=== PATIENT | male | born 1955 | race Caucasian/White ===

== ENCOUNTER 2021-03-03 19:08 | Inpatient (IN) ==
[2021-03-03] MEDS ORDERED: 0.9 % Sodium Chloride 1,000 ML IVC ONE (20:10)
[2021-03-03] MEDS ORDERED: methylPREDNISolone 125 MG/2 ML VIAL IVP ONE (20:10)
[2021-03-03] MEDS ORDERED: Ipratropium/Albuterol Neb 3 ML IH ONE (20:10)
[2021-03-03 20:37] LABS: Immature Granulocytes % 0.4 % (0-4); Mean Corpuscular HGB Conc 32.6 g/dL (31.6-35.5); Red Cell Distribution Width 14.2 % (11.5-14.5)
[2021-03-03 20:39] LABS: Basophils % 0.2 %; Hematocrit 42.3 % (37.5-50.1); Hemoglobin 13.8 g/dL (12.9-16.9); Immature Platelets 6.3 % (1.1-6.1); Lymphocytes # 0.9 K/mcL (0.6-4.6); Lymphocytes % 9.7 %; Mean Corpuscular Hemoglobin 28.3 pg (28.0-33.3); Mean Corpuscular Volume 86.7 fL (83.0-100.0); Mean Platelet Volume 11.6 fL (9.4-12.4); Monocytes # 0.6 K/mcL (0.0-1.3); Monocytes % 6.8 %; Neutrophils # 7.5 K/mcL (1.6-8.9); Platelet Count 136 K/mcL (140-400); Red Blood Count 4.88 M/mcL (4.19-5.50); Segmented Neutrophils % 82.9 %; White Blood Count 9.1 K/mcL (4.3-11.1)
[2021-03-03 20:59] LABS: Potassium 4.1 mEq/L (3.5-5.1)
[2021-03-03] MEDS ORDERED: Furosemide 20 MG/2 ML VIAL IVP ONE (21:11)
[2021-03-03 21:18] LABS: Troponin I 0.12 ng/mL (< 0.04)
[2021-03-03 22:00] LABS: Adenovirus Not Detected (Not Detect); Coronavirus 229E Not Detected (Not Detect); Coronavirus HKU1 Not Detected (Not Detect); Coronavirus NL63 Not Detected (Not Detect); Coronavirus OC43 Not Detected (Not Detect)
[2021-03-03 22:01] LABS: Bordetella Pertussis Not Detected (Not Detect); Chlamydophila pneumoniae Not Detected (Not Detect); Human Metapneumovirus Not Detected (Not Detect); Human Rhinovirus/Enterovirus Not Detected (Not Detect); Influenza A Subtype 2009 H1 Not Detected (Not Detect); Influenza B Not Detected (Not Detect); Mycoplasma pneumoniae Not Detected (Not Detect); Parainfluenza Virus 1 Not Detected (Not Detect); Parainfluenza Virus 2 Not Detected (Not Detect); Parainfluenza Virus 3 Not Detected (Not Detect); Parainfluenza Virus 4 Not Detected (Not Detect); Respiratory Syncytial Virus Not Detected (Not Detect)
[2021-03-03 22:03] LABS: SARS-CoV-2 DETECTED (Not Detect)
[2021-03-04] MEDS ORDERED: Acetaminophen 325 MG TABLET PO PRN (00:07)
[2021-03-04] MEDS ORDERED: Naloxone 0.4 MG/ML INJ IVP PRN (00:07)
[2021-03-04] MEDS ORDERED: Ondansetron 4 MG/2 ML VIAL IVP PRN (00:07)
[2021-03-04] MEDS ORDERED: Benzonatate 100 MG CAPSULE PO PRN (00:10)
[2021-03-04 01:36] LABS: Basophils % 0.2 %
[2021-03-04 01:37] LABS: Hemoglobin 14.6 g/dL (12.9-16.9); Immature Granulocytes % 0.8 % (0-4); Immature Platelets 6.4 % (1.1-6.1); Lymphocytes # 0.4 K/mcL (0.6-4.6); Mean Corpuscular HGB Conc 31.7 g/dL (31.6-35.5); Mean Corpuscular Volume 88.1 fL (83.0-100.0); Mean Platelet Volume 11.4 fL (9.4-12.4); Monocytes # 0.4 K/mcL (0.0-1.3); Monocytes % 3.9 %; Neutrophils # 9.8 K/mcL (1.6-8.9); Platelet Count 139 K/mcL (140-400); Red Blood Count 5.22 M/mcL (4.19-5.50); Red Cell Distribution Width 14.2 % (11.5-14.5); Segmented Neutrophils % 91.1 %; White Blood Count 10.8 K/mcL (4.3-11.1)
[2021-03-04 01:42] LABS: INR 1.2; Prothrombin Time 13.6 Seconds (9.4-12.1)
[2021-03-04 01:45] LABS: Activated Partial Thrombo Time 27.9 Seconds (26.0-36.0)
[2021-03-04 02:11] LABS: Albumin 3.6 g/dL (3.5-5.7); Albumin/Globulin Ratio 1.1 (1.1-2.2); Bilirubin,Total 0.6 mg/dL (0.3-1.0); Calcium 8.1 mg/dL (8.6-10.3); Globulin 3.3 g/dL (2.4-3.5); Magnesium 1.7 mg/dL (1.6-2.6); Phosphorous 2.9 mg/dL (2.7-4.5); Potassium 4.3 mEq/L (3.5-5.1); Total Protein 6.9 g/dL (6.4-8.9); Troponin I 0.09 ng/mL (< 0.04)
[2021-03-04] MEDS ORDERED: D5% in Water 1,000 ML IVC PRN (03:27)
[2021-03-04] MEDS ORDERED: Dextrose Gel 15 GM/37.5 ML TUBE PO PRN ×2 (03:27)
[2021-03-04] MEDS ORDERED: *HR* Dextrose 50 % in Water (Vial) 50 ML VIAL IVP PRN (03:27)
[2021-03-04] MEDS ORDERED: 0.9 % Sodium Chloride 1,000 ML IVC ONE (03:41)
[2021-03-04] MEDS: Ipratropium 1 PUFF INHALER IH SCH ×6 (05:09→23:38)
[2021-03-04] MEDS: *HR* Heparin 5,000 UNIT/ML VIAL SQ SCH ×2 (05:31→17:48)
[2021-03-04] MEDS: levoFLOXacin 750 MG/150 ML 750 MG/150 ML BAG IVPB SCH (08:24)
[2021-03-04] MEDS: Insulin LISPRO 300 UNITS/3 ML VIAL SUBQ SCH ×6 (08:26→20:29)
[2021-03-04] MEDS ORDERED: Insulin DETEMIR 100 UNIT/ML X5UNITS SUBQ ONE (08:30)
[2021-03-04] MEDS: Gabapentin 300 MG CAPSULE PO SCH ×3 (10:47→20:29)
[2021-03-04] MEDS: 0.9 % Sodium Chloride 1,000 ML IVC SCH ×2 (10:48→20:28)
[2021-03-04] MEDS: Aspirin Enteric Coated 325 MG Tablet PO SCH (10:50)
[2021-03-04] MEDS: Insulin DETEMIR 100 UNIT/ML X5UNITS SUBQ SCH (20:29)
[2021-03-05] MEDS: Melatonin 3 MG TABLET PO PRN (02:55)
[2021-03-05] MEDS: Ipratropium 1 PUFF INHALER IH SCH ×5 (04:15→20:31)
[2021-03-05 05:02] LABS: Alanine Aminotransferase 26 Units/L (7-52); Albumin 3.4 g/dL (3.5-5.7); Albumin/Globulin Ratio 1.1 (1.1-2.2); Alkaline Phosphatase 100 Units/L (34-104); Aspartate Amino Transferase 40 Units/L (13-39); BUN/Creatinine Ratio 32 (6-26); Bilirubin,Total 0.5 mg/dL (0.3-1.0); Blood Urea Nitrogen 34 mg/dL (8-23); Calcium 8.5 mg/dL (8.6-10.3); Carbon Dioxide 24 mEq/L (23-29); Chloride 105 mEq/L (98-107); Globulin 3.1 g/dL (2.4-3.5); Glucose 101 mg/dL (70-105); Osmolality,Calculated 294 (280-300); Potassium 4.4 mEq/L (3.5-5.1); Sodium 138 mEq/L (136-145); Total Protein 6.5 g/dL (6.4-8.9); eGFR For African Americans > 60 (> 60); eGFR For Non-African Americans > 60 (> 60)
[2021-03-05] MEDS: *HR* Heparin 5,000 UNIT/ML VIAL SQ SCH ×2 (05:17→17:56)
[2021-03-05 06:02] LABS: Basophils % 0.1 %; Hematocrit 46.6 % (37.5-50.1); Hemoglobin 15.3 g/dL (12.9-16.9); Immature Granulocytes % 0.7 % (0-4); Lymphocytes % 4.5 %; Mean Corpuscular HGB Conc 32.8 g/dL (31.6-35.5); Mean Corpuscular Hemoglobin 28.6 pg (28.0-33.3); Mean Corpuscular Volume 87.1 fL (83.0-100.0); Mean Platelet Volume 11.1 fL (9.4-12.4); Monocytes # 0.7 K/mcL (0.0-1.3); Monocytes % 3.1 %; Neutrophils # 20.4 K/mcL (1.6-8.9); Platelet Count 241 K/mcL (140-400); Red Blood Count 5.35 M/mcL (4.19-5.50); Red Cell Distribution Width 14.1 % (11.5-14.5); Segmented Neutrophils % 91.6 %; White Blood Count 22.3 K/mcL (4.3-11.1)
[2021-03-05] MEDS ORDERED: Furosemide 40 MG/4 ML VIAL IVP SCH ×2 (09:00→21:00)
[2021-03-05] MEDS: Aspirin Enteric Coated 325 MG Tablet PO SCH (09:03)
[2021-03-05] MEDS: Gabapentin 300 MG CAPSULE PO SCH ×3 (09:03→21:00)
[2021-03-05] MEDS: Insulin LISPRO 300 UNITS/3 ML VIAL SUBQ SCH ×7 (09:03→21:02)
[2021-03-05] MEDS: levoFLOXacin 750 MG/150 ML 750 MG/150 ML BAG IVPB SCH (09:03)
[2021-03-05] MEDS: Insulin DETEMIR 100 UNIT/ML X5UNITS SUBQ SCH (21:01)
[2021-03-06] MEDS: Ipratropium 1 PUFF INHALER IH SCH ×7 (00:49→23:34)
[2021-03-06 03:50] LABS: Basophils % 0.1 %; Hematocrit 46.2 % (37.5-50.1); Hemoglobin 14.8 g/dL (12.9-16.9); Immature Granulocytes % 0.5 % (0-4); Lymphocytes # 1.1 K/mcL (0.6-4.6); Lymphocytes % 5.8 %; Mean Corpuscular Hemoglobin 28.2 pg (28.0-33.3); Mean Corpuscular Volume 88.2 fL (83.0-100.0); Mean Platelet Volume 10.8 fL (9.4-12.4); Monocytes # 0.8 K/mcL (0.0-1.3); Monocytes % 4.1 %; Neutrophils # 16.7 K/mcL (1.6-8.9); Platelet Count 244 K/mcL (140-400); Red Blood Count 5.24 M/mcL (4.19-5.50); Red Cell Distribution Width 14.5 % (11.5-14.5); Segmented Neutrophils % 89.5 %; White Blood Count 18.7 K/mcL (4.3-11.1)
[2021-03-06 04:26] LABS: Calcium 8.7 mg/dL (8.6-10.3); Magnesium 1.8 mg/dL (1.6-2.6); Potassium 4.3 mEq/L (3.5-5.1)
[2021-03-06] MEDS: *HR* Heparin 5,000 UNIT/ML VIAL SQ SCH ×2 (04:36→16:57)
[2021-03-06] MEDS: Aspirin Enteric Coated 325 MG Tablet PO SCH (08:01)
[2021-03-06] MEDS: Dexamethasone Sodium Phos/PF 10 MG/ML VIAL IVP SCH (08:01)
[2021-03-06] MEDS: Gabapentin 300 MG CAPSULE PO SCH ×3 (08:01→21:04)
[2021-03-06] MEDS: levoFLOXacin 750 MG/150 ML 750 MG/150 ML BAG IVPB SCH (08:01)
[2021-03-06] MEDS: Insulin LISPRO 300 UNITS/3 ML VIAL SUBQ SCH ×7 (08:22→21:08)
[2021-03-06] MEDS: Insulin DETEMIR 100 UNIT/ML X5UNITS SUBQ SCH (21:11)
[2021-03-07] MEDS: Ipratropium 1 PUFF INHALER IH SCH ×6 (04:12→23:08)
[2021-03-07] MEDS: *HR* Enoxaparin 40 MG/0.4 ML SYRINGE SQ SCH (05:16)
[2021-03-07 06:03] LABS: Hematocrit 46.2 % (37.5-50.1); Hemoglobin 14.5 g/dL (12.9-16.9); Mean Corpuscular HGB Conc 31.4 g/dL (31.6-35.5); Mean Corpuscular Hemoglobin 28.1 pg (28.0-33.3); Mean Corpuscular Volume 89.5 fL (83.0-100.0); Mean Platelet Volume 10.8 fL (9.4-12.4); Platelet Count 171 K/mcL (140-400); Red Blood Count 5.16 M/mcL (4.19-5.50); Red Cell Distribution Width 14.2 % (11.5-14.5); White Blood Count 11.2 K/mcL (4.3-11.1)
[2021-03-07] MEDS: Furosemide 40 MG/4 ML VIAL IVP SCH (08:59)
[2021-03-07] MEDS: levoFLOXacin 750 MG/150 ML 750 MG/150 ML BAG IVPB SCH (09:00)
[2021-03-07] MEDS: Aspirin Enteric Coated 325 MG Tablet PO SCH (09:01)
[2021-03-07] MEDS: Dexamethasone Sodium Phos/PF 10 MG/ML VIAL IVP SCH (09:01)
[2021-03-07] MEDS: Gabapentin 300 MG CAPSULE PO SCH ×3 (09:01→20:08)
[2021-03-07] MEDS: Insulin LISPRO 300 UNITS/3 ML VIAL SUBQ SCH ×7 (09:02→20:20)
[2021-03-07] MEDS ORDERED: Insulin LISPRO 300 UNITS/3 ML VIAL SUBQ SCH (11:30)
[2021-03-07 12:50] LABS: BUN/Creatinine Ratio 32 (6-26); Blood Urea Nitrogen 46 mg/dL (8-23); Calcium 8.2 mg/dL (8.6-10.3); Carbon Dioxide 22 mEq/L (23-29); Chloride 98 mEq/L (98-107); Glucose 445 mg/dL (70-105); Osmolality,Calculated 307 (280-300); Potassium 4.5 mEq/L (3.5-5.1); Sodium 133 mEq/L (136-145); eGFR For African Americans > 60 (> 60); eGFR For Non-African Americans 50 (> 60)
[2021-03-07] MEDS: Melatonin 3 MG TABLET PO PRN (20:08)
[2021-03-07] MEDS: Insulin DETEMIR 100 UNIT/ML X5UNITS SUBQ SCH (20:19)
[2021-03-08] MEDS: Ipratropium 1 PUFF INHALER IH SCH ×5 (04:32→20:11)
[2021-03-08] MEDS: *HR* Enoxaparin 40 MG/0.4 ML SYRINGE SQ SCH (05:19)
[2021-03-08 06:41] LABS: Hematocrit 40.6 % (37.5-50.1); Hemoglobin 13.3 g/dL (12.9-16.9); Mean Corpuscular HGB Conc 32.8 g/dL (31.6-35.5); Mean Corpuscular Hemoglobin 28.2 pg (28.0-33.3); Mean Platelet Volume 10.7 fL (9.4-12.4); Platelet Count 235 K/mcL (140-400); Red Blood Count 4.72 M/mcL (4.19-5.50); Red Cell Distribution Width 13.6 % (11.5-14.5); White Blood Count 9.7 K/mcL (4.3-11.1)
[2021-03-08 07:01] LABS: BUN/Creatinine Ratio 36 (6-26); Blood Urea Nitrogen 50 mg/dL (8-23); Calcium 8.5 mg/dL (8.6-10.3); Carbon Dioxide 26 mEq/L (23-29); Chloride 101 mEq/L (98-107); Glucose 330 mg/dL (70-105); Osmolality,Calculated 306 (280-300); Potassium 4.5 mEq/L (3.5-5.1); Sodium 135 mEq/L (136-145); eGFR For African Americans > 60 (> 60); eGFR For Non-African Americans 51 (> 60)
[2021-03-08] MEDS: Aspirin Enteric Coated 325 MG Tablet PO SCH (08:34)
[2021-03-08] MEDS: levoFLOXacin 750 MG TABLET PO SCH (08:34)
[2021-03-08] MEDS: Furosemide 40 MG/4 ML VIAL IVP SCH (08:35)
[2021-03-08] MEDS: Dexamethasone Sodium Phos/PF 10 MG/ML VIAL IVP SCH (08:35)
[2021-03-08] MEDS: Insulin LISPRO 300 UNITS/3 ML VIAL SUBQ SCH ×8 (08:35→21:15)
[2021-03-08] MEDS: Gabapentin 300 MG CAPSULE PO SCH ×3 (08:36→20:16)
[2021-03-08] MEDS: polyethylene glycoL 3350 17 GM POWD.PACK PO SCH (16:48)
[2021-03-08] MEDS: Insulin DETEMIR 100 UNIT/ML X5UNITS SUBQ SCH (20:16)
[2021-03-08] MEDS: Melatonin 3 MG TABLET PO PRN (20:16)
[2021-03-09] MEDS: Ipratropium 1 PUFF INHALER IH SCH ×7 (00:22→23:51)
[2021-03-09] MEDS: *HR* Enoxaparin 40 MG/0.4 ML SYRINGE SQ SCH (05:09)
[2021-03-09 07:28] LABS: Basophils % 0.3 %
[2021-03-09 07:35] LABS: Hemoglobin 13.3 g/dL (12.9-16.9); Mean Platelet Volume 10.7 fL (9.4-12.4)
[2021-03-09 07:37] LABS: Hematocrit 39.9 % (37.5-50.1); Immature Granulocytes % 1.5 % (0-4); Immature Platelets 5.3 % (1.1-6.1); Lymphocytes # 0.5 K/mcL (0.6-4.6); Lymphocytes % 5.9 %; Mean Corpuscular HGB Conc 33.3 g/dL (31.6-35.5); Mean Corpuscular Hemoglobin 28.1 pg (28.0-33.3); Mean Corpuscular Volume 84.4 fL (83.0-100.0); Monocytes # 0.5 K/mcL (0.0-1.3); Platelet Count 207 K/mcL (140-400); Red Blood Count 4.73 M/mcL (4.19-5.50); Red Cell Distribution Width 13.5 % (11.5-14.5); Segmented Neutrophils % 87.3 %; White Blood Count 9.2 K/mcL (4.3-11.1)
[2021-03-09 08:30] LABS: BUN/Creatinine Ratio 35 (6-26); Blood Urea Nitrogen 50 mg/dL (8-23); Calcium 8.4 mg/dL (8.6-10.3); Carbon Dioxide 24 mEq/L (23-29); Chloride 103 mEq/L (98-107); Glucose 190 mg/dL (70-105); Osmolality,Calculated 302 (280-300); Potassium 4.7 mEq/L (3.5-5.1); Sodium 137 mEq/L (136-145); eGFR For African Americans > 60 (> 60); eGFR For Non-African Americans 50 (> 60)
[2021-03-09 09:09] LABS: Large Platelets Present (Not Present); Platelet Estimate Normal (Normal)
[2021-03-09] MEDS: levoFLOXacin 750 MG TABLET PO SCH (10:51)
[2021-03-09] MEDS: Aspirin Enteric Coated 325 MG Tablet PO SCH (10:52)
[2021-03-09] MEDS: Furosemide 40 MG TABLET PO SCH (10:52)
[2021-03-09] MEDS: Dexamethasone Sodium Phos/PF 10 MG/ML VIAL IVP SCH (10:52)
[2021-03-09] MEDS: Gabapentin 300 MG CAPSULE PO SCH ×3 (10:52→20:28)
[2021-03-09] MEDS: polyethylene glycoL 3350 17 GM POWD.PACK PO SCH (10:53)
[2021-03-09] MEDS: Insulin LISPRO 300 UNITS/3 ML VIAL SUBQ SCH ×7 (12:04→20:28)
[2021-03-09] MEDS: Insulin DETEMIR 100 UNIT/ML X5UNITS SUBQ SCH (20:28)
[2021-03-10] MEDS: Ipratropium 1 PUFF INHALER IH SCH ×4 (04:21→16:03)
[2021-03-10] MEDS: *HR* Enoxaparin 40 MG/0.4 ML SYRINGE SQ SCH (05:52)
[2021-03-10 09:53] LABS: BUN/Creatinine Ratio 35 (6-26); Blood Urea Nitrogen 43 mg/dL (8-23); Carbon Dioxide 25 mEq/L (23-29); Chloride 101 mEq/L (98-107); Glucose 252 mg/dL (70-105); Osmolality,Calculated 299 (280-300); Potassium 4.7 mEq/L (3.5-5.1); Sodium 135 mEq/L (136-145); eGFR For African Americans > 60 (> 60); eGFR For Non-African Americans 58 (> 60)
[2021-03-10] MEDS: Aspirin Enteric Coated 325 MG Tablet PO SCH (10:32)
[2021-03-10] MEDS: polyethylene glycoL 3350 17 GM POWD.PACK PO SCH (10:32)
[2021-03-10] MEDS: Furosemide 40 MG TABLET PO SCH (10:32)
[2021-03-10] MEDS: Gabapentin 300 MG CAPSULE PO SCH ×2 (10:32→16:49)
[2021-03-10] MEDS: levoFLOXacin 750 MG TABLET PO SCH (10:33)
[2021-03-10] MEDS: Dexamethasone Sodium Phos/PF 10 MG/ML VIAL IVP SCH (10:36)
[2021-03-10] MEDS: Insulin LISPRO 300 UNITS/3 ML VIAL SUBQ SCH ×6 (10:40→16:57)
[2021-03-10 11:21] LABS: Calcium 8.6 mg/dL (8.6-10.3)
[2021-03-10 11:50] VITALS: BP 170/82; PULSE 80; TEMP 97.5
[2021-03-10 16:52] VITALS: O2SAT 91
== END 2021-03-10 18:22 | disposition home or self-care (01) | DRG 871 ==
LOC: 3BNU 19:08 → EMEROOARM 19:08 → SUATTDRO 22:10 → 3BNU 03-04 00:54 → SUATTDRO 03-04 17:38 → 2NENU 03-05 22:37
PROVIDERS: ADMIT Internal Medicine; ATTEND Internal Medicine

== ENCOUNTER 2021-10-04 17:36 | Inpatient (IN) ==
[2021-10-04] MEDS ORDERED: Isovue-370 500 ML BOTTLE IVP ONE (18:04)
[2021-10-04 18:16] LABS: Hemoglobin 15.6 g/dL (12.9-16.9); Mean Corpuscular HGB Conc 33.2 g/dL (31.6-35.5); Mean Corpuscular Hemoglobin 28.3 pg (28.0-33.3); Mean Corpuscular Volume 85.1 fL (83.0-100.0); Mean Platelet Volume 11.9 fL (9.4-12.4); Platelet Count 174 K/mcL (140-400); Red Blood Count 5.52 M/mcL (4.19-5.50); Red Cell Distribution Width 13.9 % (11.5-14.5); White Blood Count 11.4 K/mcL (4.3-11.1)
[2021-10-04 18:39] LABS: Calcium 9.3 mg/dL (8.6-10.3); Troponin I 0.05 ng/mL (< 0.04)
[2021-10-04] MEDS ORDERED: Aspirin 325 MG TABLET PO ONE (19:00)
[2021-10-04] MEDS ORDERED: Perflutren Lipid Microsphere 1.3 ML in 0.9 % Sodium Chloride 8.7 ML IVP PRN (20:10)
[2021-10-04] MEDS ORDERED: 0.9 % Sodium Chloride 1,000 ML IVC SCH (20:15)
[2021-10-04] MEDS ORDERED: *HR* Dextrose 50 % in Water (Syg) 50 ML SYRINGE IVP PRN (21:48)
[2021-10-04] MEDS ORDERED: D5% in Water 1,000 ML IVC PRN (21:48)
[2021-10-04] MEDS ORDERED: Dextrose 4 GM Chewable Tablets PO PRN ×2 (21:48)
[2021-10-04] MEDS ORDERED: Aspirin 81 MG TAB.CHEW PO ONE (21:50)
[2021-10-04] MEDS: Insulin DETEMIR 100 UNIT/ML X5UNITS SUBQ SCH (22:41)
[2021-10-04] MEDS: Gabapentin 300 MG CAPSULE PO SCH (22:41)
[2021-10-05 02:28] LABS: Hematocrit 40.8 % (37.5-50.1); Mean Corpuscular HGB Conc 32.8 g/dL (31.6-35.5); Mean Corpuscular Volume 85.4 fL (83.0-100.0); Mean Platelet Volume 12.1 fL (9.4-12.4); Platelet Count 137 K/mcL (140-400); Red Blood Count 4.78 M/mcL (4.19-5.50); Red Cell Distribution Width 13.8 % (11.5-14.5); White Blood Count 9.2 K/mcL (4.3-11.1)
[2021-10-05 02:32] LABS: Estimated Average Glucose 246 mg/dl; Hemoglobin A1C 10.2 %
[2021-10-05 02:36] LABS: Hemoglobin 13.4 g/dL (12.9-16.9)
[2021-10-05 02:39] LABS: Calcium 8.5 mg/dL (8.6-10.3); Chol/HDL Ratio 6.2 (0-4.9)
[2021-10-05] MEDS: Aspirin 81 MG TAB.CHEW PO SCH (09:39)
[2021-10-05] MEDS: Furosemide 40 MG TABLET PO SCH (09:39)
[2021-10-05] MEDS: Gabapentin 300 MG CAPSULE PO SCH ×3 (09:39→20:35)
[2021-10-05] MEDS ORDERED: Insulin LISPRO 300 UNITS/3 ML VIAL SUBQ SCH ×2 (09:49→22:00)
[2021-10-05] MEDS: Insulin LISPRO 300 UNITS/3 ML VIAL SUBQ SCH ×2 (12:15→16:47)
[2021-10-05 14:01] LABS: Amphetamine Screen,Urine Negative ng/mL (Cutoff=1000); Barbiturate Screen,Urine Negative ng/mL (Cutoff=200); Benzodiazepines Screen,Urine Negative ng/mL (Cutoff=200); Cannabinoid Screen,Urine Negative ng/mL (Cutoff = 50); Cocaine Screen,Urine Negative ng/mL (Cutoff= 300); Opiate Screen,Urine Negative ng/mL (Cutoff=300); Phencyclidine Screen,Urine Negative ng/mL (Cutoff=25)
[2021-10-05] MEDS: Insulin DETEMIR 100 UNIT/ML X5UNITS SUBQ SCH (20:36)
[2021-10-06 06:44] VITALS: BP 184/91; PULSE 63; TEMP 98.1; O2SAT 93
[2021-10-06] MEDS: Insulin LISPRO 300 UNITS/3 ML VIAL SUBQ SCH (08:49)
[2021-10-06] MEDS: Gabapentin 300 MG CAPSULE PO SCH (08:49)
[2021-10-06] MEDS: Aspirin 81 MG TAB.CHEW PO SCH (08:49)
[2021-10-06] MEDS: Furosemide 40 MG TABLET PO SCH (08:49)
== END 2021-10-06 13:57 | disposition home health service (06) | DRG 45 ==
LOC: EMEROOARM 17:36 → 3BNU 17:36 → SUATTDRO 10-05 13:14
PROVIDERS: ADMIT Nurse Practitioner; ATTEND Nurse Practitioner

== ENCOUNTER 2021-11-22 16:20 | Inpatient (IN) ==
[2021-11-22] MEDS ORDERED: Isovue-370 500 ML BOTTLE IVP ONE (16:31)
[2021-11-22 16:54] LABS: Hematocrit 34.6 % (37.5-50.1); Hemoglobin 11.3 g/dL (12.9-16.9); Mean Corpuscular HGB Conc 32.7 g/dL (31.6-35.5); Mean Corpuscular Hemoglobin 28.3 pg (28.0-33.3); Mean Corpuscular Volume 86.5 fL (83.0-100.0); Mean Platelet Volume 11.2 fL (9.4-12.4); Platelet Count 145 K/mcL (140-400); Red Cell Distribution Width 14.7 % (11.5-14.5); White Blood Count 13.9 K/mcL (4.3-11.1)
[2021-11-22 17:04] LABS: INR 1.2; Prothrombin Time 13.8 Seconds (9.4-12.1)
[2021-11-22 17:07] LABS: Activated Partial Thrombo Time 29.1 Seconds (26.0-36.0)
[2021-11-22 17:41] LABS: BUN/Creatinine Ratio 21 (6-26); Blood Urea Nitrogen 34 mg/dL (8-23); Carbon Dioxide 26 mEq/L (23-29); Chloride 98 mEq/L (98-107); Creatine Kinase 85 Units/L (30-223); Ethanol < 10 mg/dL (Less than 10); Glucose 172 mg/dL (70-105); Osmolality,Calculated 284 (280-300); Potassium 3.8 mEq/L (3.5-5.1); Sodium 131 mEq/L (136-145); Troponin I 0.11 ng/mL (< 0.04); eGFR For African Americans 53 (> 60); eGFR For Non-African Americans 43 (> 60)
[2021-11-22 18:19] LABS: Bilirubin,Urine Negative (Negative); Blood,Urine Negative (Negative); Clarity,Urine Clear (Clear); Color,Urine Yellow (Yellow); Glucose,Urine (UA) Normal (Normal); Ketones,Urine Negative (Negative); Leukocyte Esterase,Urine Negative (Negative); Nitrite,Urine Negative (Negative); Protein,Urine Trace mg/dL (Neg-Trace); Specific Gravity,Urine > 1.030 (1.010-1.025); Urobilinogen,Urine Normal (Normal)
[2021-11-22] MEDS ORDERED: Aspirin Enteric Coated 325 MG Tablet PO SCH (20:00)
[2021-11-22] MEDS ORDERED: 0.9 % Sodium Chloride 1,000 ML IVC SCH (20:15)
[2021-11-23 01:29] LABS: Hematocrit 35.8 % (37.5-50.1); Hemoglobin 11.5 g/dL (12.9-16.9); Mean Corpuscular HGB Conc 32.1 g/dL (31.6-35.5); Mean Corpuscular Hemoglobin 28.1 pg (28.0-33.3); Mean Corpuscular Volume 87.5 fL (83.0-100.0); Mean Platelet Volume 11.6 fL (9.4-12.4); Platelet Count 148 K/mcL (140-400); Red Blood Count 4.09 M/mcL (4.19-5.50); Red Cell Distribution Width 14.7 % (11.5-14.5); White Blood Count 12.5 K/mcL (4.3-11.1)
[2021-11-23 01:46] LABS: INR 1.2; Prothrombin Time 13.1 Seconds (9.4-12.1)
[2021-11-23 01:47] LABS: Albumin 3.3 g/dL (3.5-5.7); Albumin/Globulin Ratio 1.2 (1.1-2.2); Bilirubin,Total 0.6 mg/dL (0.3-1.0); Calcium 8.4 mg/dL (8.6-10.3); Chol/HDL Ratio 2.6 (0-4.9); Globulin 2.7 g/dL (2.4-3.5); Potassium 3.5 mEq/L (3.5-5.1)
[2021-11-23 02:00] LABS: Adenovirus Not Detected (Not Detect); Bordetella Pertussis Not Detected (Not Detect); Chlamydophila pneumoniae Not Detected (Not Detect); Coronavirus 229E Not Detected (Not Detect); Coronavirus HKU1 Not Detected (Not Detect); Coronavirus NL63 Not Detected (Not Detect); Coronavirus OC43 Not Detected (Not Detect); Human Metapneumovirus Not Detected (Not Detect); Human Rhinovirus/Enterovirus DETECTED (Not Detect); Influenza A Subtype 2009 H1 Not Detected (Not Detect); Influenza B Not Detected (Not Detect); Mycoplasma pneumoniae Not Detected (Not Detect); Parainfluenza Virus 1 Not Detected (Not Detect); Parainfluenza Virus 2 Not Detected (Not Detect); Parainfluenza Virus 3 Not Detected (Not Detect); Parainfluenza Virus 4 Not Detected (Not Detect); Respiratory Syncytial Virus Not Detected (Not Detect); SARS-CoV-2 Not Detected (Not Detect)
[2021-11-23 02:48] LABS: Estimated Average Glucose 206 mg/dl; Hemoglobin A1C 8.8 %
[2021-11-23] MEDS ORDERED: Perflutren Lipid Microsphere 1.3 ML in 0.9 % Sodium Chloride 8.7 ML IVP PRN (03:25)
[2021-11-23] MEDS ORDERED: *HR* Heparin 5,000 UNIT/ML VIAL IVP PRN ×2 (08:24)
[2021-11-23] MEDS ORDERED: *HR* Heparin 5,000 UNIT/ML VIAL IVP ONE (08:24)
[2021-11-23] MEDS ORDERED: Heparin 25,000UNIT/250ML 1/2NS 25,000 UNIT/250 ML IV.SOLN IVC SCH (08:30)
[2021-11-23] MEDS: Gabapentin 300 MG CAPSULE PO SCH ×3 (08:37→20:13)
[2021-11-23] MEDS: Aspirin Enteric Coated 325 MG Tablet PO SCH (08:37)
[2021-11-23] MEDS: amLODIPine 5 MG TABLET PO SCH (08:38)
[2021-11-23 09:38] LABS: Hematocrit 38.6 % (37.5-50.1); Hemoglobin 12.5 g/dL (12.9-16.9); Mean Corpuscular HGB Conc 32.4 g/dL (31.6-35.5); Mean Corpuscular Hemoglobin 28.3 pg (28.0-33.3); Mean Corpuscular Volume 87.5 fL (83.0-100.0); Mean Platelet Volume 11.1 fL (9.4-12.4); Platelet Count 147 K/mcL (140-400); Red Blood Count 4.41 M/mcL (4.19-5.50); Red Cell Distribution Width 14.9 % (11.5-14.5); White Blood Count 13.6 K/mcL (4.3-11.1)
[2021-11-23 09:46] LABS: Heparin anti-factor XA UFH < 0.04 IU/mL (0.30-0.70); INR 1.1; Prothrombin Time 12.4 Seconds (9.4-12.1)
[2021-11-23] MEDS: Azithromycin 250 MG TABLET PO SCH (12:45)
[2021-11-23] MEDS: Furosemide 40 MG TABLET PO SCH (12:45)
[2021-11-23] MEDS: predniSONE 20 MG TABLET PO SCH (12:45)
[2021-11-23] MEDS: Losartan/HCTZ 50-12.5 TABLET PO SCH (12:45)
[2021-11-23] MEDS ORDERED: D5% in Water 1,000 ML IVC PRN (16:20)
[2021-11-23] MEDS ORDERED: *HR* Dextrose 50 % in Water (Syg) 50 ML SYRINGE IVP PRN (16:20)
[2021-11-23] MEDS ORDERED: Dextrose 4 GM Chewable Tablets PO PRN ×2 (16:20)
[2021-11-23] MEDS: Insulin LISPRO 300 UNITS/3 ML VIAL SUBQ SCH ×2 (16:43→20:14)
[2021-11-24 01:10] LABS: Estimated Average Glucose 203 mg/dl; Hemoglobin A1C 8.7 %
[2021-11-24 02:03] LABS: Basophils % 0.2 %; Hematocrit 36.4 % (37.5-50.1); Hemoglobin 11.7 g/dL (12.9-16.9); Immature Granulocytes % 0.5 % (0-4); Lymphocytes % 9.7 %; Mean Corpuscular HGB Conc 32.1 g/dL (31.6-35.5); Mean Corpuscular Volume 87.1 fL (83.0-100.0); Mean Platelet Volume 11.6 fL (9.4-12.4); Monocytes # 0.5 K/mcL (0.0-1.3); Neutrophils # 8.7 K/mcL (1.6-8.9); Platelet Count 146 K/mcL (140-400); Red Blood Count 4.18 M/mcL (4.19-5.50); Red Cell Distribution Width 14.5 % (11.5-14.5); Segmented Neutrophils % 84.6 %; White Blood Count 10.3 K/mcL (4.3-11.1)
[2021-11-24 02:26] LABS: Calcium 8.2 mg/dL (8.6-10.3); Potassium 4.4 mEq/L (3.5-5.1)
[2021-11-24] MEDS: *HR* Enoxaparin 40 MG/0.4 ML SYRINGE SQ SCH (05:51)
[2021-11-24] MEDS: Insulin LISPRO 300 UNITS/3 ML VIAL SUBQ SCH ×4 (08:05→20:00)
[2021-11-24] MEDS: Losartan/HCTZ 50-12.5 TABLET PO SCH (08:05)
[2021-11-24] MEDS: predniSONE 20 MG TABLET PO SCH (08:05)
[2021-11-24] MEDS: Furosemide 40 MG TABLET PO SCH (08:06)
[2021-11-24] MEDS: Azithromycin 250 MG TABLET PO SCH (08:06)
[2021-11-24] MEDS: Aspirin Enteric Coated 325 MG Tablet PO SCH (08:06)
[2021-11-24] MEDS: Gabapentin 300 MG CAPSULE PO SCH ×3 (08:06→19:58)
[2021-11-24] MEDS: amLODIPine 5 MG TABLET PO SCH (08:06)
[2021-11-24 13:02] LABS: Amphetamine Screen,Urine Negative ng/mL (Cutoff=1000); Barbiturate Screen,Urine Negative ng/mL (Cutoff=200); Benzodiazepines Screen,Urine Negative ng/mL (Cutoff=200); Cannabinoid Screen,Urine Negative ng/mL (Cutoff = 50); Cocaine Screen,Urine Negative ng/mL (Cutoff= 300); Opiate Screen,Urine Negative ng/mL (Cutoff=300); Phencyclidine Screen,Urine Negative ng/mL (Cutoff=25)
[2021-11-25] MEDS: *HR* Enoxaparin 40 MG/0.4 ML SYRINGE SQ SCH (05:23)
[2021-11-25] MEDS ORDERED: Regadenoson 0.4 MG/5 ML SYRINGE IVP ONE (06:26)
[2021-11-25] MEDS: Azithromycin 250 MG TABLET PO SCH (09:23)
[2021-11-25] MEDS: Insulin LISPRO 300 UNITS/3 ML VIAL SUBQ SCH ×2 (09:23→12:08)
[2021-11-25] MEDS: Losartan/HCTZ 50-12.5 TABLET PO SCH (09:23)
[2021-11-25] MEDS: Aspirin Enteric Coated 325 MG Tablet PO SCH (09:23)
[2021-11-25] MEDS: predniSONE 20 MG TABLET PO SCH (09:23)
[2021-11-25] MEDS: amLODIPine 5 MG TABLET PO SCH (09:23)
[2021-11-25] MEDS: Furosemide 40 MG TABLET PO SCH (09:24)
[2021-11-25] MEDS: Gabapentin 300 MG CAPSULE PO SCH (09:24)
[2021-11-25 11:16] VITALS: BP 130/69; PULSE 61; TEMP 97.6; O2SAT 92
[2021-11-25] MEDS ORDERED: Metoprolol XL (24 HR) Succ 25 MG TAB.ER.24H PO SCH (21:00)
== END 2021-11-25 14:31 | disposition home or self-care (01) | DRG 67 ==
LOC: EMEROOARM 16:20 → 3BNU 16:20 → SUATTDRO 19:40 → 3BNU 20:30
PROVIDERS: ADMIT Internal Medicine; ATTEND Registered Nurse

== ENCOUNTER 2022-01-09 06:31 | Inpatient (IN) ==
[2022-01-09] MEDS ORDERED: *HR* Propofol 200 MG/20 ML VIAL IVP ONE (06:55)
[2022-01-09] MEDS ORDERED: Clindamycin 900 MG/50 ML 900 MG/50 ML IV.SOLN IVPB ONE ×2 (06:57→16:00)
[2022-01-09] MEDS ORDERED: Vancomycin 1,250 MG/262.5 ML IV.SOLN IVPB ONE ×2 (06:57→20:00)
[2022-01-09] MEDS ORDERED: Ondansetron 4 MG/2 ML VIAL ONE (06:58)
[2022-01-09] MEDS ORDERED: Lidocaine -MPF 2% 5 ML VIAL ONE ×3 (06:58→09:54)
[2022-01-09] MEDS ORDERED: *HR* Succinylcholine 200 MG/10 ML VIAL IVP ONE (06:58)
[2022-01-09] MEDS ORDERED: *HR* Rocuronium Bromide 50 MG/5 ML VIAL ONE ×3 (06:58→09:54)
[2022-01-09] MEDS ORDERED: *HR* Phenylephrine 10 MG/ML VIAL ONE (06:58)
[2022-01-09] MEDS ORDERED: Ringers Solution, Lactated 1,000 ML IVC SCH ×2 (07:00→15:34)
[2022-01-09] MEDS ORDERED: Famotidine 20 MG/2 ML VIAL IVP ONE (07:00)
[2022-01-09] MEDS ORDERED: Acetaminophen IV 1,000 MG/100 ML BAG IVPB ONE (07:00)
[2022-01-09] MEDS ORDERED: *HR* Heparin 5,000 UNIT/ML VIAL ONE (07:03)
[2022-01-09] MEDS ORDERED: Insulin Human Regular 10 UNIT in 0.9 % Sodium Chloride 10 ML IV ONE ×3 (07:04→15:34)
[2022-01-09] MEDS ORDERED: *HR* Midazolam HCl 2 MG/2 ML VIAL ONE (07:09)
[2022-01-09] MEDS ORDERED: *HR* FentaNYL (PF) 100 MCG/2 ML VIAL ONE (07:09)
[2022-01-09] MEDS ORDERED: *HR* Remifentanil 2 MG VIAL IVP ONE ×2 (07:13→13:26)
[2022-01-09] MEDS ORDERED: Protamine Sulfate 50 MG/5 ML VIAL IVP ONE (07:26)
[2022-01-09] MEDS ORDERED: Bupivacaine-MPF 0.25% 10 ML VIAL ONE (07:26)
[2022-01-09] MEDS ORDERED: Heparin 1,000 UNITS/500 mL 1,000 ML ONE (07:27)
[2022-01-09] MEDS ORDERED: Vancomycin 1,000 MG, Sodium Chloride IRRigation 1,000 ML IR ONE (07:45)
[2022-01-09] MEDS ORDERED: *HR* Etomidate 40 MG/20 ML VIAL IVP ONE (07:48)
[2022-01-09] MEDS ORDERED: EPHEDrine 50 MG/ML VIAL ONE (08:29)
[2022-01-09 09:10] LABS: ABG Base Excess 2 mEq/L (-2 to 3); ABG Chloride 108 mEq/L (98-107); ABG Glucose 157 mg/dL (60-95); ABG HCO3 25 mEq/L (21-27); ABG Oxygen Saturation 99 % (95-98); ABG PCO2 32 mmHg (35-45); ABG PO2 136 mmHg (85-104); ABG TCO2 26 mEq/L (20-26)
[2022-01-09] MEDS ORDERED: Heparin 1,000 UNITS/500 mL 0 ML ONE (09:41)
[2022-01-09 10:25] LABS: ABG Base Excess -9 mEq/L (-2 to 3); ABG Chloride 127 mEq/L (98-107); ABG Glucose 113 mg/dL (60-95); ABG HCO3 15 mEq/L (21-27); ABG Ionized Calcium 0.42 mmol/L (1.15-1.35); ABG Oxygen Saturation 99 % (95-98); ABG PCO2 23 mmHg (35-45); ABG PH 7.41 pH Units (7.32-7.45); ABG PO2 114 mmHg (85-104); ABG TCO2 15 mEq/L (20-26)
[2022-01-09] MEDS ORDERED: Sugammadex Sodium 200 MG/2 ML VIAL IV ONE ×2 (10:36→12:15)
[2022-01-09 10:43] LABS: ABG Base Excess 1 mEq/L (-2 to 3); ABG Chloride 109 mEq/L (98-107); ABG Glucose 202 mg/dL (60-95); ABG HCO3 24 mEq/L (21-27); ABG Ionized Calcium 1.07 mmol/L (1.15-1.35); ABG Oxygen Saturation 99 % (95-98); ABG PCO2 30 mmHg (35-45); ABG PO2 102 mmHg (85-104); ABG TCO2 25 mEq/L (20-26)
[2022-01-09] MEDS ORDERED: *HR* Remifentanil 1 MG VIAL IVP ONE (11:06)
[2022-01-09 11:23] LABS: ABG Base Excess 1 mEq/L (-2 to 3); ABG Chloride 108 mEq/L (98-107); ABG Glucose 235 mg/dL (60-95); ABG HCO3 24 mEq/L (21-27); ABG Ionized Calcium 1.13 mmol/L (1.15-1.35); ABG Oxygen Saturation 99 % (95-98); ABG PCO2 29 mmHg (35-45); ABG PH 7.51 pH Units (7.32-7.45); ABG PO2 112 mmHg (85-104); ABG TCO2 24 mEq/L (20-26)
[2022-01-09] MEDS ORDERED: *HR* HYDROMORPHONE 2 MG/ML VIAL ONE (11:23)
[2022-01-09] MEDS ORDERED: *HR* HYDROmorphone PF 0.5 MG/0.5 ML SYRINGE IVP PRN (11:58)
[2022-01-09] MEDS ORDERED: Ondansetron 4 MG/2 ML VIAL IVP PRN ×2 (11:58→15:34)
[2022-01-09] MEDS ORDERED: Naloxone 0.4 MG/ML INJ ONE (12:31)
[2022-01-09] MEDS ORDERED: flumazeniL 0.5 MG/5 ML VIAL IVP ONE (12:39)
[2022-01-09 13:37] LABS: ABG Base Excess 0 mEq/L (-2 to 3); ABG Chloride 107 mEq/L (98-107); ABG Glucose 288 mg/dL (60-95); ABG HCO3 25 mEq/L (21-27); ABG Ionized Calcium 1.17 mmol/L (1.15-1.35); ABG Oxygen Saturation 100 % (95-98); ABG PCO2 41 mmHg (35-45); ABG PO2 170 mmHg (85-104); ABG TCO2 27 mEq/L (20-26)
[2022-01-09] MEDS ORDERED: Heparin 1,000 UNITS/500 mL 500 ML ONE (14:18)
[2022-01-09] MEDS ORDERED: *HR* Labetalol 20 MG/4 ML SYRINGE IVP ONE (14:25)
[2022-01-09] MEDS: *HR* Labetalol 20 MG/4 ML SYRINGE IVP PRN ×2 (14:26→14:44)
[2022-01-09] MEDS ORDERED: *HR* Labetalol 20 MG/4 ML SYRINGE IVP PRN ×2 (14:28→15:34)
[2022-01-09] MEDS ORDERED: *HR* Dextrose 50 % in Water (Syg) 50 ML SYRINGE IVP PRN (15:34)
[2022-01-09] MEDS ORDERED: Naloxone 0.4 MG/ML INJ IVP PRN (15:34)
[2022-01-09] MEDS ORDERED: Dextrose Gel 15 GM/37.5 ML TUBE PO PRN ×2 (15:34)
[2022-01-09] MEDS ORDERED: D5% in Water 1,000 ML IVC PRN (15:34)
[2022-01-09] MEDS: Insulin LISPRO 300 UNITS/3 ML VIAL SUBQ SCH (17:54)
[2022-01-09] MEDS ORDERED: Insulin LISPRO 300 UNITS/3 ML VIAL SUBQ SCH (21:00)
[2022-01-09] MEDS: Gabapentin 300 MG CAPSULE PO SCH (21:17)
[2022-01-09] MEDS: *HR* Ticagrelor 90 MG TABLET PO SCH (21:17)
[2022-01-10 05:00] LABS: Basophils # 0.1 K/mcL (0.0-0.2); Basophils % 0.3 %; Eosinophils # 0.1 K/mcL (0.0-0.6); Eosinophils % 0.3 %; Hematocrit 31.5 % (37.5-50.1); Immature Granulocytes % 0.4 % (0-4); Lymphocytes # 0.8 K/mcL (0.6-4.6); Lymphocytes % 3.9 %; Mean Corpuscular HGB Conc 30.8 g/dL (31.6-35.5); Mean Corpuscular Hemoglobin 26.8 pg (28.0-33.3); Mean Platelet Volume 11.8 fL (9.4-12.4); Monocytes # 1.4 K/mcL (0.0-1.3); Monocytes % 6.6 %; Platelet Count 202 K/mcL (140-400); Red Blood Count 3.62 M/mcL (4.19-5.50); Red Cell Distribution Width 15.5 % (11.5-14.5); Segmented Neutrophils % 88.5 %
[2022-01-10 05:02] LABS: Hemoglobin 9.7 g/dL (12.9-16.9); White Blood Count 21.5 K/mcL (4.3-11.1)
[2022-01-10 05:12] LABS: Calcium 8.7 mg/dL (8.6-10.3); Potassium 4.3 mEq/L (3.5-5.1)
[2022-01-10] MEDS ORDERED: *HR* Heparin 5,000 UNIT/ML VIAL SQ SCH ×2 (06:00)
[2022-01-10] MEDS ORDERED: Ipratropium/Albuterol Neb 3 ML IH ONE (09:09)
[2022-01-10] MEDS ORDERED: Furosemide 40 MG/4 ML VIAL IVP ONE (09:09)
[2022-01-10] MEDS: Aspirin Enteric Coated 81 MG Tablet PO SCH (09:10)
[2022-01-10] MEDS: *HR* Ticagrelor 90 MG TABLET PO SCH ×2 (09:11→20:01)
[2022-01-10] MEDS: Furosemide 40 MG TABLET PO SCH (09:11)
[2022-01-10] MEDS: Gabapentin 300 MG CAPSULE PO SCH ×3 (09:11→20:01)
[2022-01-10] MEDS: Insulin LISPRO 300 UNITS/3 ML VIAL SUBQ SCH ×3 (09:45→18:15)
[2022-01-10] MEDS ORDERED: methylPREDNISolone 125 MG/2 ML VIAL IVP ONE (10:02)
[2022-01-10 10:42] LABS: Troponin I 0.3 ng/mL (< 0.04)
[2022-01-10 10:44] LABS: ABG Base Excess 2 mEq/L (-2 to 3); ABG HCO3 27 mEq/L (21-27); ABG Oxygen Saturation 99 % (95-98); ABG PCO2 43 mmHg (35-45); ABG PH 7.41 pH Units (7.32-7.45); ABG PO2 143 mmHg (85-104); ABG TCO2 28 mEq/L (20-26); Blood Gas Modality CPAP/PS
[2022-01-10] MEDS ORDERED: *HR* Heparin 5,000 UNIT/ML VIAL IVP PRN ×2 (10:59)
[2022-01-10] MEDS ORDERED: *HR* Heparin 5,000 UNIT/ML VIAL IVP ONE (10:59)
[2022-01-10] MEDS ORDERED: Azithromycin 500 MG in 0.9 % Sodium Chloride 250 ML IVPB SCH (11:00)
[2022-01-10 11:40] LABS: Hematocrit 36.2 % (37.5-50.1); Mean Corpuscular HGB Conc 31.5 g/dL (31.6-35.5); Mean Corpuscular Hemoglobin 27.4 pg (28.0-33.3); Mean Platelet Volume 11.6 fL (9.4-12.4); Platelet Count 247 K/mcL (140-400); Red Blood Count 4.16 M/mcL (4.19-5.50); Red Cell Distribution Width 15.9 % (11.5-14.5); White Blood Count 24.2 K/mcL (4.3-11.1)
[2022-01-10 11:43] LABS: Hemoglobin 11.4 g/dL (12.9-16.9)
[2022-01-10 11:48] LABS: Heparin anti-factor XA UFH < 0.04 IU/mL (0.30-0.70); INR 1.1; Prothrombin Time 11.9 Seconds (9.4-12.1)
[2022-01-10] MEDS: 0.9 % Sodium Chloride 1,000 ML IVC SCH (12:02)
[2022-01-10] MEDS: Heparin 25,000UNIT/250ML 1/2NS 25,000 UNIT/250 ML IV.SOLN IVC SCH (12:03)
[2022-01-10] MEDS: Ipratropium/Albuterol Neb 3 ML IH SCH ×2 (15:42→22:37)
[2022-01-10] MEDS: Acetylcysteine 10% 2 ML INHSOL IH SCH ×2 (15:42→22:37)
[2022-01-10] MEDS: MethylPREDNISolone 40 MG/ML VIAL IVP SCH (18:30)
[2022-01-10] MEDS ORDERED: Acetaminophen IV 1,000 MG/100 ML BAG IVPB ONE (19:13)
[2022-01-10 19:39] LABS: Adenovirus Not Detected (Not Detect); Bordetella Pertussis Not Detected (Not Detect); Chlamydophila pneumoniae Not Detected (Not Detect); Coronavirus 229E Not Detected (Not Detect); Coronavirus HKU1 Not Detected (Not Detect); Coronavirus NL63 Not Detected (Not Detect); Coronavirus OC43 Not Detected (Not Detect); Human Metapneumovirus Not Detected (Not Detect); Human Rhinovirus/Enterovirus Not Detected (Not Detect); Influenza A Subtype 2009 H1 Not Detected (Not Detect); Influenza B Not Detected (Not Detect); Mycoplasma pneumoniae Not Detected (Not Detect); Parainfluenza Virus 1 Not Detected (Not Detect); Parainfluenza Virus 2 Not Detected (Not Detect); Parainfluenza Virus 3 Not Detected (Not Detect); Parainfluenza Virus 4 Not Detected (Not Detect); Respiratory Syncytial Virus Not Detected (Not Detect); SARS-CoV-2 Not Detected (Not Detect)
[2022-01-10 22:00] LABS: Bilirubin,Urine Negative (Negative); Blood,Urine Moderate (Negative); Clarity,Urine Clear (Clear); Color,Urine Light-Yellow (Yellow); Glucose,Urine (UA) 500 mg/dL (Normal); Hyaline Casts,Urine Few per lpf (None Seen); Ketones,Urine Negative (Negative); Leukocyte Esterase,Urine Negative (Negative); Mucus,Urine Few per lpf (None-Few); Nitrite,Urine Negative (Negative); PH,Urine 5.5 pH Units (5.0-8.0); Protein,Urine 30 mg/dL (Neg-Trace); RBC,Urine 15-30 per hpf (0-3); Specific Gravity,Urine 1.022 (1.010-1.025); Urobilinogen,Urine Normal (Normal); WBC,Urine 0-3 per hpf (0-3)
[2022-01-11] MEDS: Insulin LISPRO 300 UNITS/3 ML VIAL SUBQ SCH ×4 (00:06→17:43)
[2022-01-11] MEDS: MethylPREDNISolone 40 MG/ML VIAL IVP SCH ×3 (03:20→17:29)
[2022-01-11] MEDS: 0.9 % Sodium Chloride 1,000 ML IVC SCH (03:20)
[2022-01-11] MEDS: *HR* Labetalol 20 MG/4 ML SYRINGE IVP PRN ×2 (03:24→10:32)
[2022-01-11] MEDS: Ipratropium/Albuterol Neb 3 ML IH SCH ×5 (07:51→23:51)
[2022-01-11] MEDS: Acetylcysteine 10% 2 ML INHSOL IH SCH (07:51)
[2022-01-11] MEDS: Furosemide 40 MG TABLET PO SCH (08:45)
[2022-01-11] MEDS: Aspirin Enteric Coated 81 MG Tablet PO SCH (08:45)
[2022-01-11] MEDS: *HR* Ticagrelor 90 MG TABLET PO SCH ×2 (08:45→19:54)
[2022-01-11] MEDS: Gabapentin 300 MG CAPSULE PO SCH (08:46)
[2022-01-11] MEDS ORDERED: Perflutren Lipid Microsphere 1.3 ML in 0.9 % Sodium Chloride 8.7 ML IVP PRN (08:58)
[2022-01-11 09:28] LABS: Hematocrit 33.7 % (37.5-50.1); Hemoglobin 10.6 g/dL (12.9-16.9); Mean Corpuscular HGB Conc 31.5 g/dL (31.6-35.5); Mean Corpuscular Hemoglobin 27.6 pg (28.0-33.3); Mean Corpuscular Volume 87.8 fL (83.0-100.0); Mean Platelet Volume 11.7 fL (9.4-12.4); Platelet Count 233 K/mcL (140-400); Red Blood Count 3.84 M/mcL (4.19-5.50); Red Cell Distribution Width 16.1 % (11.5-14.5); White Blood Count 24.7 K/mcL (4.3-11.1)
[2022-01-11 09:45] LABS: Alanine Aminotransferase 20 Units/L (7-52); Albumin 3.4 g/dL (3.5-5.7); Albumin/Globulin Ratio 1.3 (1.1-2.2); Alkaline Phosphatase 72 Units/L (34-104); Aspartate Amino Transferase 36 Units/L (13-39); BUN/Creatinine Ratio 22 (6-26); Bilirubin,Direct 0.1 mg/dL (0.0-0.2); Bilirubin,Indirect 0.5 mg/dL (0.0-1.0); Bilirubin,Total 0.6 mg/dL (0.3-1.0); Blood Urea Nitrogen 29 mg/dL (8-23); Calcium 8.5 mg/dL (8.6-10.3); Carbon Dioxide 25 mEq/L (23-29); Chloride 106 mEq/L (98-107); Globulin 2.7 g/dL (2.4-3.5); Glucose 319 mg/dL (70-105); Osmolality,Calculated 312 (280-300); Potassium 4.1 mEq/L (3.5-5.1); Sodium 142 mEq/L (136-145); Total Protein 6.1 g/dL (6.4-8.9); eGFR For African Americans > 60 (> 60); eGFR For Non-African Americans 55 (> 60)
[2022-01-11 09:58] LABS: Lymphocytes # 1.5 K/mcL (0.6-4.6); Neutrophils # 17.8 K/mcL (1.6-8.9); Platelet Estimate Normal (Normal)
[2022-01-11 10:03] LABS: Anisocytosis 1+ (Not Present)
[2022-01-11] MEDS: Heparin 25,000UNIT/250ML 1/2NS 25,000 UNIT/250 ML IV.SOLN IVC SCH (10:32)
[2022-01-11] MEDS ORDERED: Furosemide 40 MG/4 ML VIAL IVP SCH (12:45)
[2022-01-11] MEDS ORDERED: Insulin DETEMIR 100 UNIT/ML X5UNITS SQ SCH (13:00)
[2022-01-11] MEDS: *HR* Metoprolol 5 MG/5 ML VIAL IVP SCH ×2 (13:24→17:29)
[2022-01-11] MEDS: levoFLOXacin 750 MG/150 ML 750 MG/150 ML BAG IVPB SCH (13:25)
[2022-01-11] MEDS: Furosemide 40 MG/4 ML VIAL IVP SCH ×2 (13:25→19:59)
[2022-01-11] MEDS: Insulin DETEMIR 100 UNIT/ML X5UNITS SUBQ SCH ×2 (13:25→20:00)
[2022-01-11] MEDS ORDERED: Gabapentin 400 MG CAPSULE PO SCH (15:00)
[2022-01-12] MEDS: *HR* Metoprolol 5 MG/5 ML VIAL IVP SCH ×5 (00:17→23:32)
[2022-01-12] MEDS: Insulin LISPRO 300 UNITS/3 ML VIAL SUBQ SCH ×4 (00:18→17:39)
[2022-01-12] MEDS: Acetaminophen IV 1,000 MG/100 ML BAG IVPB PRN ×2 (01:03→14:51)
[2022-01-12] MEDS: MethylPREDNISolone 40 MG/ML VIAL IVP SCH ×3 (02:45→17:39)
[2022-01-12] MEDS: *HR* Labetalol 20 MG/4 ML SYRINGE IVP PRN (03:30)
[2022-01-12] MEDS: Ipratropium/Albuterol Neb 3 ML IH SCH ×6 (04:11→23:08)
[2022-01-12 04:46] LABS: Basophils % 0.1 %; Hemoglobin 10.2 g/dL (12.9-16.9); Immature Granulocytes % 0.7 % (0-4); Lymphocytes # 0.8 K/mcL (0.6-4.6); Lymphocytes % 3.7 %; Mean Corpuscular HGB Conc 30.9 g/dL (31.6-35.5); Mean Corpuscular Hemoglobin 27.1 pg (28.0-33.3); Mean Corpuscular Volume 87.8 fL (83.0-100.0); Mean Platelet Volume 11.2 fL (9.4-12.4); Monocytes # 0.9 K/mcL (0.0-1.3); Monocytes % 4.1 %; Platelet Count 254 K/mcL (140-400); Red Blood Count 3.76 M/mcL (4.19-5.50); Red Cell Distribution Width 15.9 % (11.5-14.5); Segmented Neutrophils % 91.4 %; White Blood Count 20.8 K/mcL (4.3-11.1)
[2022-01-12 05:05] LABS: Calcium 8.9 mg/dL (8.6-10.3); Potassium 4.1 mEq/L (3.5-5.1)
[2022-01-12] MEDS: Albumin 25% 25gram/100mL 25 GM/100 ML IV.SOLN IVC SCH ×2 (09:56→11:38)
[2022-01-12] MEDS: *HR* Ticagrelor 90 MG TABLET PO SCH ×2 (09:56→19:35)
[2022-01-12] MEDS: Insulin DETEMIR 100 UNIT/ML X5UNITS SUBQ SCH ×2 (10:53→20:54)
[2022-01-12] MEDS ORDERED: Sennosides/Docusate Sodium TABLET PO PRN (11:58)
[2022-01-12 12:54] LABS: ABG Base Excess 4 mEq/L (-2 to 3); ABG HCO3 29 mEq/L (21-27); ABG Oxygen Saturation 92 % (95-98); ABG PCO2 42 mmHg (35-45); ABG PH 7.44 pH Units (7.32-7.45); ABG PO2 63 mmHg (85-104); ABG TCO2 30 mEq/L (20-26)
[2022-01-12] MEDS: Heparin 25,000UNIT/250ML 1/2NS 25,000 UNIT/250 ML IV.SOLN IVC SCH ×2 (12:56→17:41)
[2022-01-12] MEDS: levoFLOXacin 750 MG/150 ML 750 MG/150 ML BAG IVPB SCH (13:13)
[2022-01-12] MEDS ORDERED: Furosemide 40 MG/4 ML VIAL IVP ONE (13:40)
[2022-01-12] MEDS ORDERED: Glycerin RECTAL Suppository RC PRN (21:19)
[2022-01-13] MEDS: *HR* Labetalol 20 MG/4 ML SYRINGE IVP PRN (02:23)
[2022-01-13] MEDS: MethylPREDNISolone 40 MG/ML VIAL IVP SCH ×3 (02:23→16:54)
[2022-01-13] MEDS ORDERED: *HR* LORazepam 2 MG/ML VIAL IVP ONE ×2 (02:41→05:13)
[2022-01-13] MEDS: Acetaminophen IV 1,000 MG/100 ML BAG IVPB PRN (02:52)
[2022-01-13] MEDS: Ipratropium/Albuterol Neb 3 ML IH SCH ×7 (03:43→23:00)
[2022-01-13 04:45] LABS: Basophils % 0.2 %; Hematocrit 29.1 % (37.5-50.1); Hemoglobin 9.1 g/dL (12.9-16.9); Immature Granulocytes % 0.7 % (0-4); Lymphocytes # 0.6 K/mcL (0.6-4.6); Lymphocytes % 4.1 %; Mean Corpuscular HGB Conc 31.3 g/dL (31.6-35.5); Mean Corpuscular Hemoglobin 27.3 pg (28.0-33.3); Mean Corpuscular Volume 87.4 fL (83.0-100.0); Monocytes # 0.7 K/mcL (0.0-1.3); Monocytes % 4.8 %; Neutrophils # 13.8 K/mcL (1.6-8.9); Platelet Count 209 K/mcL (140-400); Red Blood Count 3.33 M/mcL (4.19-5.50); Red Cell Distribution Width 15.9 % (11.5-14.5); Segmented Neutrophils % 90.2 %; White Blood Count 15.3 K/mcL (4.3-11.1)
[2022-01-13 04:59] LABS: Calcium 8.8 mg/dL (8.6-10.3); Potassium 3.7 mEq/L (3.5-5.1)
[2022-01-13] MEDS: Insulin LISPRO 300 UNITS/3 ML VIAL SUBQ SCH ×4 (05:30→16:54)
[2022-01-13] MEDS: *HR* Metoprolol 5 MG/5 ML VIAL IVP SCH ×3 (05:33→16:54)
[2022-01-13] MEDS: *HR* Ticagrelor 90 MG TABLET PO SCH ×2 (07:39→21:25)
[2022-01-13] MEDS: Insulin DETEMIR 100 UNIT/ML X5UNITS SUBQ SCH ×2 (08:23→21:23)
[2022-01-13 09:10] LABS: ABG Base Excess 5 mEq/L (-2 to 3); ABG HCO3 29 mEq/L (21-27); ABG Oxygen Saturation 91 % (95-98); ABG PCO2 42 mmHg (35-45); ABG PH 7.45 pH Units (7.32-7.45); ABG PO2 58 mmHg (85-104); ABG TCO2 30 mEq/L (20-26)
[2022-01-13] MEDS: levoFLOXacin 750 MG/150 ML 750 MG/150 ML BAG IVPB SCH (11:32)
[2022-01-13] MEDS ORDERED: Albumin 25% 25gram/100mL 25 GM/100 ML IV.SOLN IVPB ONE (13:34)
[2022-01-13] MEDS ORDERED: Furosemide 40 MG in 0.9 % Sodium Chloride 50 ML IV ONE (13:34)
[2022-01-13] MEDS ORDERED: Furosemide 40 MG/4 ML VIAL IVP ONE (13:37)
[2022-01-13] MEDS: Albumin Human 5% 12.5 GM/250 ML IV.SOLN IVC SCH ×2 (14:26→17:57)
[2022-01-13] MEDS: Meropenem 1,000 MG in 0.9 % Sodium Chloride 20 ML IVP SCH (14:26)
[2022-01-13] MEDS: Heparin 25,000UNIT/250ML 1/2NS 25,000 UNIT/250 ML IV.SOLN IVC SCH (21:23)
[2022-01-14] MEDS: Insulin LISPRO 300 UNITS/3 ML VIAL SUBQ SCH ×4 (00:44→16:56)
[2022-01-14] MEDS: *HR* Metoprolol 5 MG/5 ML VIAL IVP SCH ×4 (00:46→16:55)
[2022-01-14] MEDS: MethylPREDNISolone 40 MG/ML VIAL IVP SCH ×3 (02:45→16:56)
[2022-01-14 02:53] LABS: Basophils % 0.2 %; Eosinophils % 0.1 %; Hematocrit 30.3 % (37.5-50.1); Hemoglobin 9.4 g/dL (12.9-16.9); Immature Granulocytes % 1.2 % (0-4); Lymphocytes # 0.5 K/mcL (0.6-4.6); Lymphocytes % 3.6 %; Mean Corpuscular Hemoglobin 27.4 pg (28.0-33.3); Mean Corpuscular Volume 88.3 fL (83.0-100.0); Mean Platelet Volume 11.1 fL (9.4-12.4); Monocytes # 0.7 K/mcL (0.0-1.3); Monocytes % 5.3 %; Neutrophils # 12.1 K/mcL (1.6-8.9); Platelet Count 214 K/mcL (140-400); Red Blood Count 3.43 M/mcL (4.19-5.50); Segmented Neutrophils % 89.6 %; White Blood Count 13.5 K/mcL (4.3-11.1)
[2022-01-14 03:07] LABS: Potassium 3.4 mEq/L (3.5-5.1)
[2022-01-14] MEDS: Ipratropium/Albuterol Neb 3 ML IH SCH ×6 (03:57→22:57)
[2022-01-14] MEDS: Heparin 25,000UNIT/250ML 1/2NS 25,000 UNIT/250 ML IV.SOLN IVC SCH ×2 (04:09→21:34)
[2022-01-14 04:15] LABS: ABG Base Excess 5 mEq/L (-2 to 3); ABG HCO3 30 mEq/L (21-27); ABG Oxygen Saturation 92 % (95-98); ABG PCO2 42 mmHg (35-45); ABG PH 7.46 pH Units (7.32-7.45); ABG PO2 60 mmHg (85-104); ABG TCO2 31 mEq/L (20-26)
[2022-01-14] MEDS: Meropenem 1,000 MG in 0.9 % Sodium Chloride 20 ML IVP SCH ×2 (04:52→16:56)
[2022-01-14] MEDS: *HR* Ticagrelor 90 MG TABLET PO SCH ×2 (06:29→19:53)
[2022-01-14] MEDS: Insulin DETEMIR 100 UNIT/ML X5UNITS SUBQ SCH ×2 (06:36→20:10)
[2022-01-14] MEDS: Pantoprazole 40 MG VIAL IVP SCH (10:03)
[2022-01-14 11:31] LABS: Hematocrit 32.6 % (37.5-50.1)
[2022-01-14] MEDS ORDERED: D5% in Water 1,000 ML IVC SCH (16:00)
[2022-01-14 18:27] LABS: Calcium 9.1 mg/dL (8.6-10.3); Potassium 3.8 mEq/L (3.5-5.1)
[2022-01-14] MEDS: *HR* Labetalol 20 MG/4 ML SYRINGE IVP PRN (20:49)
[2022-01-14] MEDS ORDERED: *HR* Metoprolol 5 MG/5 ML VIAL IVP ONE ×2 (21:24→22:40)
[2022-01-14 23:22] LABS: Calcium 8.8 mg/dL (8.6-10.3); Magnesium 2.7 mg/dL (1.6-2.6); Phosphorous 3.6 mg/dL (2.7-4.5)
[2022-01-14] MEDS ORDERED: Amiodarone Premix 150 MG/100 ML BAG IVPB ONE (23:53)
[2022-01-15] MEDS ORDERED: Amiodarone Premix 360 MG/200 ML BAG IVC ONE
[2022-01-15] MEDS: *HR* Metoprolol 5 MG/5 ML VIAL IVP SCH ×5 (00:17→23:09)
[2022-01-15] MEDS: Insulin LISPRO 300 UNITS/3 ML VIAL SUBQ SCH ×5 (00:18→23:13)
[2022-01-15] MEDS: MethylPREDNISolone 40 MG/ML VIAL IVP SCH ×3 (00:18→17:37)
[2022-01-15] MEDS: Ipratropium/Albuterol Neb 3 ML IH SCH ×6 (03:32→22:57)
[2022-01-15 03:51] LABS: Basophils % 0.2 %; Hematocrit 32.5 % (37.5-50.1); Hemoglobin 9.7 g/dL (12.9-16.9); Immature Granulocytes % 1.2 % (0-4); Lymphocytes # 0.7 K/mcL (0.6-4.6); Lymphocytes % 4.5 %; Mean Corpuscular HGB Conc 29.8 g/dL (31.6-35.5); Mean Corpuscular Hemoglobin 27.1 pg (28.0-33.3); Mean Corpuscular Volume 90.8 fL (83.0-100.0); Monocytes # 0.6 K/mcL (0.0-1.3); Monocytes % 3.7 %; Neutrophils # 14.8 K/mcL (1.6-8.9); Nucleated Red Blood Cells 0.1 /100 WBC (0); Platelet Count 234 K/mcL (140-400); Red Blood Count 3.58 M/mcL (4.19-5.50); Red Cell Distribution Width 16.2 % (11.5-14.5); Segmented Neutrophils % 90.4 %; White Blood Count 16.4 K/mcL (4.3-11.1)
[2022-01-15 04:07] LABS: Magnesium 2.7 mg/dL (1.6-2.6); Phosphorous 3.1 mg/dL (2.7-4.5)
[2022-01-15 04:08] LABS: Calcium 8.4 mg/dL (8.6-10.3); Potassium 3.7 mEq/L (3.5-5.1)
[2022-01-15] MEDS: Meropenem 1,000 MG in 0.9 % Sodium Chloride 20 ML IVP SCH (05:58)
[2022-01-15] MEDS: Amiodarone Premix 360 MG/200 ML BAG IVC SCH ×2 (05:58→17:44)
[2022-01-15 07:42] LABS: Thyroid Stimulating Hormone 0.463 mcIU/mL (0.340-5.600)
[2022-01-15] MEDS ORDERED: D5% in Water 1,000 ML IVC SCH (08:00)
[2022-01-15] MEDS: Pantoprazole 40 MG VIAL IVP SCH (08:22)
[2022-01-15] MEDS: *HR* Ticagrelor 90 MG TABLET PO SCH ×2 (08:22→20:17)
[2022-01-15] MEDS: Insulin DETEMIR 100 UNIT/ML X5UNITS SUBQ SCH ×2 (08:22→20:16)
[2022-01-15] MEDS ORDERED: E-Z-PAQUE (BARIUM SULF) SUSP 1 BOTTLE PO ONE (12:44)
[2022-01-15] MEDS ORDERED: E-Z-HD (BARIUM SULF) SUSPENSION PO ONE (12:44)
[2022-01-15 15:37] LABS: ABG Base Excess 5 mEq/L (-2 to 3); ABG HCO3 29 mEq/L (21-27); ABG Oxygen Saturation 94 % (95-98); ABG PCO2 43 mmHg (35-45); ABG PH 7.44 pH Units (7.32-7.45); ABG PO2 67 mmHg (85-104); ABG TCO2 31 mEq/L (20-26)
[2022-01-15] MEDS ORDERED: Clindamycin 600 MG/50 ML 600 MG/50 ML IV.SOLN IVPB SCH (16:00)
[2022-01-15] MEDS: MetroNIDAZOLE 500 MG/100 ML 500 MG/100 ML BAG IVPB SCH ×2 (16:32→23:09)
[2022-01-15] MEDS: Cefepime HCl 2,000 MG in 0.9 % Sodium Chloride Mini Bag 100 ML IVPB SCH (17:38)
[2022-01-15] MEDS: Heparin 25,000UNIT/250ML 1/2NS 25,000 UNIT/250 ML IV.SOLN IVC SCH ×2 (17:58→21:33)
[2022-01-16 02:02] LABS: Hematocrit 32.6 % (37.5-50.1); Hemoglobin 9.7 g/dL (12.9-16.9); Mean Corpuscular HGB Conc 29.8 g/dL (31.6-35.5); Mean Corpuscular Hemoglobin 26.5 pg (28.0-33.3); Mean Corpuscular Volume 89.1 fL (83.0-100.0); Mean Platelet Volume 10.9 fL (9.4-12.4); Platelet Count 229 K/mcL (140-400); Red Blood Count 3.66 M/mcL (4.19-5.50); White Blood Count 14.1 K/mcL (4.3-11.1)
[2022-01-16 02:22] LABS: Calcium 8.4 mg/dL (8.6-10.3); Magnesium 2.8 mg/dL (1.6-2.6); Phosphorous 3.6 mg/dL (2.7-4.5); Potassium 3.6 mEq/L (3.5-5.1)
[2022-01-16] MEDS: Ipratropium/Albuterol Neb 3 ML IH SCH ×6 (03:54→22:53)
[2022-01-16] MEDS: MethylPREDNISolone 40 MG/ML VIAL IVP SCH (05:59)
[2022-01-16] MEDS: Cefepime HCl 2,000 MG in 0.9 % Sodium Chloride Mini Bag 100 ML IVPB SCH ×2 (05:59→17:06)
[2022-01-16] MEDS: *HR* Metoprolol 5 MG/5 ML VIAL IVP SCH ×3 (05:59→18:34)
[2022-01-16] MEDS: Amiodarone Premix 360 MG/200 ML BAG IVC SCH ×2 (06:00→17:07)
[2022-01-16] MEDS: Insulin LISPRO 300 UNITS/3 ML VIAL SUBQ SCH ×3 (06:14→18:34)
[2022-01-16] MEDS: MetroNIDAZOLE 500 MG/100 ML 500 MG/100 ML BAG IVPB SCH ×2 (07:24→17:07)
[2022-01-16] MEDS: *HR* Ticagrelor 90 MG TABLET PO SCH ×2 (07:25→20:58)
[2022-01-16] MEDS: Insulin DETEMIR 100 UNIT/ML X5UNITS SUBQ SCH ×2 (07:26→20:58)
[2022-01-16] MEDS: Pantoprazole 40 MG VIAL IVP SCH (08:35)
[2022-01-16] MEDS: D5% in Water 1,000 ML IVC SCH ×2 (09:20→21:25)
[2022-01-16] MEDS ORDERED: Lidocaine -MPF 2% 5 ML VIAL ONE (15:15)
[2022-01-16] MEDS ORDERED: *HR* Heparin 5,000 UNIT/ML VIAL IVP PRN ×2 (21:28)
[2022-01-16] MEDS ORDERED: Heparin 25,000UNIT/250ML 1/2NS 25,000 UNIT/250 ML IV.SOLN IVC SCH (21:30)
[2022-01-17] MEDS: *HR* Metoprolol 5 MG/5 ML VIAL IVP SCH ×2 (00:25→06:06)
[2022-01-17] MEDS: Insulin LISPRO 300 UNITS/3 ML VIAL SUBQ SCH ×4 (00:25→18:26)
[2022-01-17] MEDS: MetroNIDAZOLE 500 MG/100 ML 500 MG/100 ML BAG IVPB SCH ×3 (00:26→16:55)
[2022-01-17] MEDS: Ipratropium/Albuterol Neb 3 ML IH SCH ×5 (04:15→20:07)
[2022-01-17] MEDS: Amiodarone Premix 360 MG/200 ML BAG IVC SCH (05:13)
[2022-01-17] MEDS: D5% in Water 1,000 ML IVC SCH (05:14)
[2022-01-17] MEDS: Cefepime HCl 2,000 MG in 0.9 % Sodium Chloride Mini Bag 100 ML IVPB SCH ×2 (06:06→16:58)
[2022-01-17 07:12] LABS: Hematocrit 27.7 % (37.5-50.1); Hemoglobin 8.2 g/dL (12.9-16.9); Mean Corpuscular HGB Conc 29.6 g/dL (31.6-35.5); Mean Corpuscular Hemoglobin 27.1 pg (28.0-33.3); Mean Corpuscular Volume 91.4 fL (83.0-100.0); Mean Platelet Volume 11.4 fL (9.4-12.4); Platelet Count 152 K/mcL (140-400); Red Blood Count 3.03 M/mcL (4.19-5.50); Red Cell Distribution Width 15.9 % (11.5-14.5); White Blood Count 12.1 K/mcL (4.3-11.1)
[2022-01-17] MEDS ORDERED: Aspirin 81 MG TAB.CHEW GTUBE SCH (09:00)
[2022-01-17] MEDS: predniSONE 20 MG TABLET GTUBE SCH (09:00)
[2022-01-17] MEDS: Pantoprazole 40 MG VIAL IVP SCH (09:00)
[2022-01-17] MEDS ORDERED: Metoprolol XL (24 HR) Succ 25 MG TAB.ER.24H PO SCH (09:00)
[2022-01-17] MEDS: *HR* Ticagrelor 90 MG TABLET GTUBE SCH ×2 (09:01→20:36)
[2022-01-17] MEDS: Insulin DETEMIR 100 UNIT/ML X5UNITS SUBQ SCH ×2 (09:06→20:38)
[2022-01-17 09:19] LABS: Calcium 7.5 mg/dL (8.6-10.3); Potassium 3.7 mEq/L (3.5-5.1)
[2022-01-17] MEDS ORDERED: Potassium Chloride Elixir 20 MEQ/15 ML UDC GTUBE ONE (09:56)
[2022-01-17] MEDS: Apixaban 5 MG TABLET GTUBE SCH ×2 (10:39→20:35)
[2022-01-17] MEDS: HydrOXYzine SYP 10 MG/5 ML UDC GTUBE PRN (20:36)
[2022-01-18] MEDS: Ipratropium/Albuterol Neb 3 ML IH SCH ×6 (00:10→19:53)
[2022-01-18] MEDS: MetroNIDAZOLE 500 MG/100 ML 500 MG/100 ML BAG IVPB SCH ×4 (00:20→23:04)
[2022-01-18] MEDS: Insulin LISPRO 300 UNITS/3 ML VIAL SUBQ SCH ×5 (00:21→23:19)
[2022-01-18 05:43] LABS: BUN/Creatinine Ratio 28 (6-26); Blood Urea Nitrogen 39 mg/dL (8-23); Calcium 7.9 mg/dL (8.6-10.3); Carbon Dioxide 27 mEq/L (23-29); Chloride 114 mEq/L (98-107); Glucose 263 mg/dL (70-105); Osmolality,Calculated 323 (280-300); Potassium 4.1 mEq/L (3.5-5.1); Sodium 147 mEq/L (136-145); eGFR For African Americans > 60 (> 60); eGFR For Non-African Americans 51 (> 60)
[2022-01-18 05:44] LABS: Hematocrit 28.6 % (37.5-50.1); Hemoglobin 8.6 g/dL (12.9-16.9); Mean Corpuscular HGB Conc 30.1 g/dL (31.6-35.5); Mean Corpuscular Hemoglobin 26.4 pg (28.0-33.3); Mean Corpuscular Volume 87.7 fL (83.0-100.0); Mean Platelet Volume 11.3 fL (9.4-12.4); Platelet Count 158 K/mcL (140-400); Red Blood Count 3.26 M/mcL (4.19-5.50); Red Cell Distribution Width 15.9 % (11.5-14.5); White Blood Count 13.8 K/mcL (4.3-11.1)
[2022-01-18] MEDS: Cefepime HCl 2,000 MG in 0.9 % Sodium Chloride Mini Bag 100 ML IVPB SCH ×2 (05:54→18:11)
[2022-01-18] MEDS: Apixaban 5 MG TABLET GTUBE SCH ×2 (07:31→20:44)
[2022-01-18] MEDS: Pantoprazole 40 MG VIAL IVP SCH (07:32)
[2022-01-18] MEDS: predniSONE 20 MG TABLET GTUBE SCH (07:32)
[2022-01-18] MEDS: *HR* Ticagrelor 90 MG TABLET GTUBE SCH ×2 (07:32→20:44)
[2022-01-18] MEDS: Insulin DETEMIR 100 UNIT/ML X5UNITS SUBQ SCH ×2 (07:33→20:45)
[2022-01-18] MEDS ORDERED: Acetaminophen 325 MG TABLET PO PRN (09:36)
[2022-01-18] MEDS ORDERED: Furosemide 40 MG/4 ML VIAL IVP ONE (09:47)
[2022-01-18] MEDS: Sennosides/Docusate Sodium TABLET GTUBE PRN (15:22)
[2022-01-18] MEDS: HydrOXYzine SYP 10 MG/5 ML UDC GTUBE PRN (23:04)
[2022-01-19] MEDS: Ipratropium/Albuterol Neb 3 ML IH SCH ×6 (01:15→20:13)
[2022-01-19 03:31] LABS: Hemoglobin 8.4 g/dL (12.9-16.9); Mean Corpuscular HGB Conc 31.1 g/dL (31.6-35.5); Mean Corpuscular Hemoglobin 27.1 pg (28.0-33.3); Mean Corpuscular Volume 87.1 fL (83.0-100.0); Mean Platelet Volume 11.6 fL (9.4-12.4); Platelet Count 125 K/mcL (140-400); Red Cell Distribution Width 15.9 % (11.5-14.5); White Blood Count 13.3 K/mcL (4.3-11.1)
[2022-01-19 03:42] LABS: Calcium 7.9 mg/dL (8.6-10.3); Potassium 4.4 mEq/L (3.5-5.1)
[2022-01-19] MEDS: Cefepime HCl 2,000 MG in 0.9 % Sodium Chloride Mini Bag 100 ML IVPB SCH ×2 (05:45→17:49)
[2022-01-19] MEDS: Insulin LISPRO 300 UNITS/3 ML VIAL SUBQ SCH ×6 (05:49→23:37)
[2022-01-19] MEDS: Apixaban 5 MG TABLET GTUBE SCH ×2 (08:09→21:10)
[2022-01-19] MEDS: predniSONE 20 MG TABLET GTUBE SCH (08:09)
[2022-01-19] MEDS: *HR* Ticagrelor 90 MG TABLET GTUBE SCH ×2 (08:09→21:10)
[2022-01-19] MEDS: Pantoprazole 40 MG VIAL IVP SCH (08:10)
[2022-01-19] MEDS: MetroNIDAZOLE 500 MG/100 ML 500 MG/100 ML BAG IVPB SCH ×3 (08:10→23:37)
[2022-01-19] MEDS: Insulin DETEMIR 100 UNIT/ML X5UNITS SUBQ SCH ×2 (08:11→21:10)
[2022-01-19] MEDS: Sennosides/Docusate Sodium TABLET GTUBE PRN (21:10)
[2022-01-19] MEDS: HydrOXYzine SYP 10 MG/5 ML UDC GTUBE PRN (21:10)
[2022-01-20] MEDS: Ipratropium/Albuterol Neb 3 ML IH SCH ×7 (00:36→23:18)
[2022-01-20 03:28] LABS: Basophils % 0.2 %; Eosinophils # 0.1 K/mcL (0.0-0.6); Eosinophils % 0.8 %; Hematocrit 28.6 % (37.5-50.1); Hemoglobin 8.9 g/dL (12.9-16.9); Immature Granulocytes % 2.5 % (0-4); Immature Platelets 8.7 % (1.1-6.1); Lymphocytes # 1.4 K/mcL (0.6-4.6); Lymphocytes % 8.1 %; Mean Corpuscular HGB Conc 31.1 g/dL (31.6-35.5); Mean Corpuscular Hemoglobin 27.1 pg (28.0-33.3); Mean Corpuscular Volume 86.9 fL (83.0-100.0); Mean Platelet Volume 11.7 fL (9.4-12.4); Monocytes # 0.9 K/mcL (0.0-1.3); Monocytes % 5.2 %; Nucleated Red Blood Cells 0.2 /100 WBC (0); Platelet Count 121 K/mcL (140-400); Red Blood Count 3.29 M/mcL (4.19-5.50); Red Cell Distribution Width 15.9 % (11.5-14.5); Segmented Neutrophils % 83.2 %; White Blood Count 16.8 K/mcL (4.3-11.1)
[2022-01-20 03:45] LABS: BUN/Creatinine Ratio 30 (6-26); Blood Urea Nitrogen 40 mg/dL (8-23); Carbon Dioxide 28 mEq/L (23-29); Chloride 110 mEq/L (98-107); Glucose 259 mg/dL (70-105); Magnesium 2.2 mg/dL (1.6-2.6); Osmolality,Calculated 317 (280-300); Phosphorous 2.9 mg/dL (2.7-4.5); Potassium 4.5 mEq/L (3.5-5.1); Sodium 144 mEq/L (136-145); eGFR For African Americans > 60 (> 60); eGFR For Non-African Americans 54 (> 60)
[2022-01-20] MEDS: Cefepime HCl 2,000 MG in 0.9 % Sodium Chloride Mini Bag 100 ML IVPB SCH ×2 (06:17→16:57)
[2022-01-20] MEDS: Insulin LISPRO 300 UNITS/3 ML VIAL SUBQ SCH ×6 (06:17→23:30)
[2022-01-20] MEDS: Insulin DETEMIR 100 UNIT/ML X5UNITS SUBQ SCH ×2 (08:16→20:51)
[2022-01-20] MEDS: Pantoprazole 40 MG VIAL IVP SCH (08:18)
[2022-01-20] MEDS: MetroNIDAZOLE 500 MG/100 ML 500 MG/100 ML BAG IVPB SCH ×3 (08:20→23:30)
[2022-01-20] MEDS: predniSONE 20 MG TABLET GTUBE SCH (08:31)
[2022-01-20] MEDS: *HR* Ticagrelor 90 MG TABLET GTUBE SCH ×2 (08:31→20:51)
[2022-01-20] MEDS: Apixaban 5 MG TABLET GTUBE SCH ×2 (08:31→20:51)
[2022-01-20] MEDS ORDERED: Melatonin 3 MG TABLET GTUBE ONE (20:30)
[2022-01-20] MEDS: HydrOXYzine SYP 10 MG/5 ML UDC GTUBE PRN (20:52)
[2022-01-21] MEDS: Ipratropium/Albuterol Neb 3 ML IH SCH ×6 (03:40→23:02)
[2022-01-21 04:09] LABS: Mean Corpuscular Volume 88.4 fL (83.0-100.0); Red Cell Distribution Width 16.4 % (11.5-14.5)
[2022-01-21 04:11] LABS: Hematocrit 29.1 % (37.5-50.1); Hemoglobin 8.8 g/dL (12.9-16.9); Immature Platelets 11.6 % (1.1-6.1); Mean Corpuscular HGB Conc 30.2 g/dL (31.6-35.5); Mean Corpuscular Hemoglobin 26.7 pg (28.0-33.3); Mean Platelet Volume 12.4 fL (9.4-12.4); Red Blood Count 3.29 M/mcL (4.19-5.50); White Blood Count 14.1 K/mcL (4.3-11.1)
[2022-01-21 04:27] LABS: BUN/Creatinine Ratio 30 (6-26); Blood Urea Nitrogen 40 mg/dL (8-23); Calcium 7.8 mg/dL (8.6-10.3); Carbon Dioxide 27 mEq/L (23-29); Chloride 109 mEq/L (98-107); Glucose 260 mg/dL (70-105); Osmolality,Calculated 311 (280-300); Potassium 4.5 mEq/L (3.5-5.1); Sodium 141 mEq/L (136-145); eGFR For African Americans > 60 (> 60); eGFR For Non-African Americans 54 (> 60)
[2022-01-21] MEDS: Cefepime HCl 2,000 MG in 0.9 % Sodium Chloride Mini Bag 100 ML IVPB SCH ×2 (05:13→17:30)
[2022-01-21] MEDS: Insulin LISPRO 300 UNITS/3 ML VIAL SUBQ SCH ×6 (05:13→23:24)
[2022-01-21] MEDS: *HR* Ticagrelor 90 MG TABLET GTUBE SCH ×2 (08:25→20:31)
[2022-01-21] MEDS: Apixaban 5 MG TABLET GTUBE SCH ×2 (08:25→20:31)
[2022-01-21] MEDS: predniSONE 20 MG TABLET GTUBE SCH (08:25)
[2022-01-21] MEDS: MetroNIDAZOLE 500 MG/100 ML 500 MG/100 ML BAG IVPB SCH ×3 (08:26→23:25)
[2022-01-21] MEDS: Insulin DETEMIR 100 UNIT/ML X5UNITS SUBQ SCH ×2 (08:27→20:33)
[2022-01-22] MEDS: Insulin LISPRO 300 UNITS/3 ML VIAL SUBQ SCH ×5 (03:18→20:54)
[2022-01-22 03:56] LABS: Hematocrit 29.9 % (37.5-50.1); Hemoglobin 9.4 g/dL (12.9-16.9); Mean Corpuscular HGB Conc 31.4 g/dL (31.6-35.5); Mean Corpuscular Hemoglobin 27.2 pg (28.0-33.3); Mean Corpuscular Volume 86.7 fL (83.0-100.0); Mean Platelet Volume 12.7 fL (9.4-12.4); Platelet Count 113 K/mcL (140-400); Red Blood Count 3.45 M/mcL (4.19-5.50); Red Cell Distribution Width 16.8 % (11.5-14.5)
[2022-01-22] MEDS: Ipratropium/Albuterol Neb 3 ML IH SCH ×6 (04:02→23:29)
[2022-01-22 04:18] LABS: BUN/Creatinine Ratio 31 (6-26); Blood Urea Nitrogen 38 mg/dL (8-23); Calcium 8.5 mg/dL (8.6-10.3); Carbon Dioxide 27 mEq/L (23-29); Chloride 109 mEq/L (98-107); Glucose 237 mg/dL (70-105); Osmolality,Calculated 311 (280-300); Potassium 4.4 mEq/L (3.5-5.1); Sodium 142 mEq/L (136-145); eGFR For African Americans > 60 (> 60); eGFR For Non-African Americans 58 (> 60)
[2022-01-22] MEDS: Cefepime HCl 2,000 MG in 0.9 % Sodium Chloride Mini Bag 100 ML IVPB SCH ×2 (05:06→18:11)
[2022-01-22] MEDS: Insulin DETEMIR 100 UNIT/ML X5UNITS SUBQ SCH ×2 (08:30→20:55)
[2022-01-22] MEDS: MetroNIDAZOLE 500 MG/100 ML 500 MG/100 ML BAG IVPB SCH ×2 (08:30→15:52)
[2022-01-22] MEDS: Apixaban 5 MG TABLET GTUBE SCH ×2 (08:31→20:50)
[2022-01-22] MEDS: *HR* Ticagrelor 90 MG TABLET GTUBE SCH ×2 (08:31→20:50)
[2022-01-22] MEDS: predniSONE 20 MG TABLET GTUBE SCH (08:31)
[2022-01-22] MEDS: *HR* Labetalol 20 MG/4 ML SYRINGE IVP PRN (17:14)
[2022-01-23] MEDS: HydrOXYzine SYP 10 MG/5 ML UDC GTUBE PRN (00:19)
[2022-01-23 02:44] LABS: Red Cell Distribution Width 17.2 % (11.5-14.5)
[2022-01-23 02:46] LABS: Hematocrit 28.1 % (37.5-50.1); Hemoglobin 8.7 g/dL (12.9-16.9); Immature Platelets 12.6 % (1.1-6.1); Mean Corpuscular Hemoglobin 27.3 pg (28.0-33.3); Mean Corpuscular Volume 88.1 fL (83.0-100.0); Mean Platelet Volume 12.8 fL (9.4-12.4); Red Blood Count 3.19 M/mcL (4.19-5.50); White Blood Count 12.1 K/mcL (4.3-11.1)
[2022-01-23 03:10] LABS: BUN/Creatinine Ratio 31 (6-26); Blood Urea Nitrogen 39 mg/dL (8-23); Calcium 8.4 mg/dL (8.6-10.3); Carbon Dioxide 25 mEq/L (23-29); Chloride 111 mEq/L (98-107); Glucose 150 mg/dL (70-105); Osmolality,Calculated 306 (280-300); Potassium 4.4 mEq/L (3.5-5.1); Sodium 142 mEq/L (136-145); eGFR For African Americans > 60 (> 60); eGFR For Non-African Americans 58 (> 60)
[2022-01-23] MEDS: Ipratropium/Albuterol Neb 3 ML IH SCH ×4 (03:44→14:41)
[2022-01-23] MEDS: Insulin LISPRO 300 UNITS/3 ML VIAL SUBQ SCH ×4 (03:46→11:10)
[2022-01-23] MEDS: Apixaban 5 MG TABLET GTUBE SCH (07:34)
[2022-01-23] MEDS: *HR* Ticagrelor 90 MG TABLET GTUBE SCH (07:34)
[2022-01-23] MEDS: Insulin DETEMIR 100 UNIT/ML X5UNITS SUBQ SCH (07:38)
[2022-01-23 07:44] VITALS: O2SAT 96
[2022-01-23] MEDS ORDERED: predniSONE 10 MG TABLET PO SCH (09:00)
[2022-01-23 10:53] VITALS: BP 149/80; PULSE 76; TEMP 98.4
[2022-01-23] MEDS ORDERED: *HR* LORazepam 2 MG/ML VIAL IVP ONE (13:19)
[2022-01-23 13:53] LABS: Adenovirus Not Detected (Not Detect); Bordetella Pertussis Not Detected (Not Detect); Chlamydophila pneumoniae Not Detected (Not Detect); Coronavirus 229E Not Detected (Not Detect); Coronavirus HKU1 Not Detected (Not Detect); Coronavirus NL63 Not Detected (Not Detect); Coronavirus OC43 Not Detected (Not Detect); Human Metapneumovirus Not Detected (Not Detect); Human Rhinovirus/Enterovirus Not Detected (Not Detect); Influenza A Subtype 2009 H1 Not Detected (Not Detect); Influenza B Not Detected (Not Detect); Mycoplasma pneumoniae Not Detected (Not Detect); Parainfluenza Virus 1 Not Detected (Not Detect); Parainfluenza Virus 2 Not Detected (Not Detect); Parainfluenza Virus 3 Not Detected (Not Detect); Parainfluenza Virus 4 Not Detected (Not Detect); Respiratory Syncytial Virus Not Detected (Not Detect); SARS-CoV-2 Not Detected (Not Detect)
== END 2022-01-23 15:45 | DRG 37 ==
LOC: SAMDAY 06:31 → SUATTDRO 15:35 → 2NNU 15:35 → 2NENU 01-22 22:52
PROVIDERS: ADMIT Surgery; ATTEND Student in an Organized Health Care Education/Training Program